=== PATIENT | male | born 1985 | race Caucasian/White ===

== ENCOUNTER 2017-05-01 14:32 | Emergency (ER) | payer SELFPAY | END 2017-05-01 15:10 | disposition left against medical advice (07) | LOC: MADERS 14:32 | DX: R55 Syncope and collapse (principal) | CPT/HCPCS: 99284 ==

== ENCOUNTER 2018-06-24 10:36 | Emergency (ER) | payer SELFPAY ==
[2018-06-24] MEDS ORDERED: Ibuprofen 800 MG TAB ONE (11:35)
== END 2018-06-24 11:55 | disposition home or self-care (01) ==
LOC: MADERS 10:36
DX: S56.911A Strain of unspecified muscles, fascia and tendons at forearm level, right arm, initial encounter (principal); S43.401A Unspecified sprain of right shoulder joint, initial encounter; F17.210 Nicotine dependence, cigarettes, uncomplicated; X50.0XXA Overexertion from strenuous movement or load, initial encounter
CPT/HCPCS: 99406

== ENCOUNTER 2019-02-01 16:03 | Emergency (ER) | payer SELFPAY ==
[~2019-02-01 16:03] MED LIST: Lidocaine 1% 20 ML MDV ONE
[2019-02-01 16:55] LABS: Bilirubin Negative (Negative); Blood, Urine Negative (Negative); Clarity Clear (Clear); Glucose, Urine (Dipstick) Negative (Negative); Leukocyte Moderate (Negative); Nitrite Negative (Negative); Protein, Urine (Dipstick) Negative (Neg-Trace); Urobilinogen 0.2 mg/dL (Less than 2)
[2019-02-01 17:03] LABS: Bacteria/HPF Rare-Few HPF (None Seen); RBC/HPF 0-3 HPF (0-3); Squamous Epithelial 0-3 HPF (0-3)
[2019-02-01] MEDS ORDERED: Azithromycin 250 MG TAB ONE (17:33)
[2019-02-01] MEDS ORDERED: cefTRIAXone\\ROCEPHIN 250 MG VIAL ONE (17:33)
[2019-02-01] MEDS ORDERED: metroNIDAZOLE 250 MG TAB ONE (17:33)
[2019-02-02 23:02] LABS: Chlam.trachomatis by PCR,Urine Not Detected (NotDetected)
== END 2019-02-01 17:43 | disposition home or self-care (01) ==
LOC: MADERS 16:03
DX: A64 Unspecified sexually transmitted disease (principal); F17.210 Nicotine dependence, cigarettes, uncomplicated
CPT/HCPCS: 81001; 87086; 87491; 87591; 96372; 99283; J0696; J2001